=== PATIENT | male | born 1965 | race Caucasian/White ===

== ENCOUNTER 2021-09-20 11:51 | Emergency (ER) | payer OTHER ==
[2021-09-20 11:56] VITALS: TEMP 97
[2021-09-20] MEDS ORDERED: SODIUM CHLORIDE 0.9% 1,000 ML IV STA (12:49)
[2021-09-20] MEDS ORDERED: ONDANSETRON 4 MG/2 ML VIAL IVP STA (12:49)
[2021-09-20] MEDS ORDERED: KETOROLAC 15 MG/ML 1 ML VIAL IVP STA (12:49)
[2021-09-20] MEDS ORDERED: HYDROmorphone 0.5 MG/0.5 ML SYRINGE IVP STA ×3 (12:49→15:45)
[2021-09-20 13:12] LABS: Appearance,Urine Cloudy (Clear); Bacteria,Urine Few /hpf; Bilirubin,Urine Negative (Negative); Blood,Urine Large (Negative); Color,Urine Dark Brown; Glucose,Urine (UA) Negative (Negative); Ketones,Urine Trace (Negative); Leukocyte Esterase,Urine Moderate (Negative); Mucus,Urine Many /hpf; Nitrite,Urine Negative (Negative); PH, Urine 5.5 (5.0-8.0); Protein,Urine 1+ (Negative); RBC,Urine >182 /hpf (0-5); Specific Gravity,Urine 1.026 (1.001-1.035); Urobilinogen,Urine <2.0 mg/dL (<2.0); WBC,Urine 64 /hpf (0-5)
--- NOTE | 2021-09-20 13:18 | CT ---
EXAMINATION TYPE: CT abdomen pelvis wo con DATE OF EXAM: 09/20/2021 COMPARISON: None HISTORY: 56-year-old male abdominal pain, right flank pain CT DLP: 716.5 mGycm. Automated exposure control for dose reduction was used. TECHNIQUE: Contiguous axial scanning of the abdomen and pelvis without IV contrast. Coronal and sagit jessa reconstructions performed. FINDINGS: Heart normal size without pericardial effusion. Lung bases clear without pleural effusion. Mildly diminished attenuation of the liver parenchyma suggesting fatty infiltration. Noncontrast appearance of the gallbladder, adrenal glands, spleen, and pancreas show no gross abnorma l body. Low-density 2.3 cm cortical lesion lateral lower pole right kidney likely cyst. Approximately 3 nonobstructive right renal calculi are present, largest measuring 7 mm. There is mild right-sided hydronephrosis and a 5 mm stone in the proximal right ureter. A number of punctate 2 mm nonobstructive calculi in the left kidney. Mild central danny mesentery with some associated nonenlarged mesenteric lymph nodes measuring up to 6 mm. 3 - 6 month follow-up CT can reassess. No dilated small bowel, free fluid, or free air. Normal appendix. Mild stool in the right side of the colon. No pericolic inflammatory change. Circumferential bladder wall thickening could represent hypertrophy or cystitis. Correlate clinically . Pelvic phleboliths. No abnormal fluid collection in the pelvis or pelvic lymphadenopathy. Bones: Mild degenerative disc disease and mild facet arthropathy. IMPRESSION: 1. A 5 mm stone in the proximal right ureter with mild obstructive uropathy. 2. Additional nonobstructive renal calculi on both sides measuring up to 7 mm on the right and punct ate 2 mm on the left. 3. Mid abdominal danny mesentery with some associated nonenlarged lymph nodes measuring up to 6 mm. Findings may be seen with mesenteric panniculitis. Clinically correlate. 3 - 6 month follow-up CT to reassess as early lymphoma can have a similar appearance. 4. Hepatic steatosis. 5. Circumferential bladder wall thickening could represent chronic bladder wall hypertrophy or cysti tis. Clinically correlate.
--- NOTE | 2021-09-20 13:19 | XR ---
EXAMINATION TYPE: XR KUB DATE OF EXAM: 09/20/2021 Comparison: CT same day Clinical History: 56-year-old male abdominal pain Findings: Pelvic phleboliths. Vague 6 mm calculus right kidney. The 5 mm calculus seen on CT is seen on the upr ight view centered higher up. Nonobstructive bowel gas pattern. Impression: 5 mm calculus proximal right ureter as seen on CT. Additional 6 mm nonobstructive right renal calculu s.
[2021-09-20 14:05] VITALS: RESP 18
[2021-09-20 14:05] LABS: Basophils # (A) 0.2 k/uL (0-0.2); Basophils % (A) 2 %; Eosinophils # (A) 0.1 k/uL (0-0.7); Eosinophils % (A) 1 %; Lymphocytes # (A) 1.1 k/uL (1.0-4.8); Lymphocytes % (A) 10 %; MCH 32.9 pg (25.0-35.0); MCHC 33.3 g/dL (31.0-37.0); MCV 98.6 fL (80.0-100.0); Mean Platelet Volume 7.6; Monocytes # (A) 0.6 k/uL (0-1.0); Monocytes % (A) 6 %; Neutrophils # (A) 8.7 k/uL (1.3-7.7); Neutrophils % (A) 80 %; Platelet Count 242 k/uL (150-450); RBC 4.87 m/uL (4.30-5.90); RDW 12.5 % (11.5-15.5); WBC 10.9 k/uL (3.8-10.6)
[2021-09-20] MEDS ORDERED: ACET/COD 300 MG/30 MG STARTER PACK 6 TAB BTL PO STA (15:14)
--- NOTE | 2021-09-20 15:15 | ED ---
General Adult HPI - General Chief complaint: Recheck/Abnormal Lab/Rx Stated complaint: Flank pain/blood in urine Time Seen by Provider: 09/20/21 12:40 Source: patient, RN notes reviewed, old records reviewed Mode of arrival: ambulatory Limitations: no limitations - History of Present Illness Initial comments: This is a 56-year-old male with a past medical history significant for kidney stones. Patient states he hasn't been the hospital for 9 or 10 years for kidney stones. Patient states today he had some hematuria and some right flank pain which was indicative of his previous episodes of kidney stone. Patient denies any reproducible abdominal pain. Patient denies any recent fever chills or cough per patient denies chest pain difficult breathing shortness of breath. Patient is mildly nauseated. - Related Data Previous Rx's Medication Instructions Recorded Ketorolac [Toradol] 10 mg PO Q6HR #15 tab 09/20/21 Tamsulosin [Flomax] 0.4 mg PO DAILY #10 cap 09/20/21 Allergies Allergy/AdvReac Type Severity Reaction Status Date / Time No Known Allergies Allergy Verified 09/20/21 11:52 Review of Systems ROS Statement: Those systems with pertinent positive or pertinent negative responses have been documented in the HPI. ROS Other: All systems not noted in ROS Statement are negative. Past Medical History Past Medical History: Atrial Fibrillation History of Any Multi-Drug Resistant Organisms: None Reported Past Surgical History: Heart Catheterization Past Psychological History: No Psychological Hx Reported Smoking Status: Never smoker Past Alcohol Use History: Occasional Past Drug Use History: None Reported General Exam - General Exam Comments Initial Comments: GENERAL: Patient is well-developed and well-nourished. Patient is nontoxic and well- hydrated and is in moderate distress. ENT: Neck is soft and supple. No significant lymphadenopathy is noted. Oropharynx is clear. Moist mucous membranes. Neck has full range of motion without eliciting any pain. EYES: The sclera were anicteric and conjunctiva were pink and moist. Extraocular movements were intact and pupils were equal round and reactive to light. Ey elids were unremarkable. PULMONARY: Unlabored respirations. Good breath sounds bilaterally. No audible rales rhonchi or wheezing was noted. CARDIOVASCULAR: There is a regular rate and rhythm without any murmurs gallops or rubs. ABDOMEN: Soft and nontender with normal bowel sounds. SKIN: Skin is clear with no lesions or rashes and otherwise unremarkable. NEUROLOGIC: Patient is alert and oriented x3. Cranial nerves II through XII are grossly intact. Motor and sensory are also intact. Normal speech, volume and content. Symmetrical smile. MUSCULOSKELETAL: Normal extremities with adequate strength and full range of motion. Mild right CVA tenderness LYMPHATICS: No significant lymphadenopathy is noted PSYCHIATRIC: Normal psychiatric evaluation. Limitations: no limitations Course Vital Signs 09/20/21 09/20/21 11:53 13:55 Temperature 97 F L Pulse Rate 51 L 77 Respiratory 16 18 Rate Blood Pressure 158/92 147/92 O2 Sat by Pulse 99 97 Oximetry Medical Decision Making - Medical Decision Making CAT scan shows a 5 mm proximal right ureteral stone with mild hydronephrosis - Lab Data Result diagrams: 09/20/21 13:50 09/20/21 14:25 Lab Results 09/20/21 09/20/21 09/20/21 Range/Units 12:03 13:50 14:23 WBC 10.9 H (3.8-10.6) k/uL RBC 4.87 (4.30-5.90) m/uL Hgb 16.0 (13.0-17.5) gm/dL Hct 48.0 (39.0-53.0) % MCV 98.6 (80.0-100.0) fL MCH 32.9 (25.0-35.0) pg MCHC 33.3 (31.0-37.0) g/dL RDW 12.5 (11.5-15.5) % Plt Count 242 (150-450) k/uL MPV 7.6 Neutrophils % 80 % Lymphocytes % 10 % Monocytes % 6 % Eosinophils % 1 % Basophils % 2 % Neutrophils # 8.7 H (1.3-7.7) k/uL Lymphocytes # 1.1 (1.0-4.8) k/uL Monocytes # 0.6 (0-1.0) k/uL Eosinophils # 0.1 (0-0.7) k/uL Basophils # 0.2 (0-0.2) k/uL Sodium (137-145) mmol/L Potassium (3.5-5.1) mmol/L Chloride (98-107) mmol/L Carbon Dioxide (22-30) mmol/L Anion Gap mmol/L BUN (9-20) mg/dL Creatinine (0.66-1.25) mg/dL Est GFR (CKD-EPI)AfAm (>60 ml/min/1.73 sqM) Est GFR (CKD-EPI)NonAf (>60 ml/min/1.73 sqM) Glucose (74-99) mg/dL Calcium (8.4-10.2) mg/dL Total Bilirubin (0.2-1.3) mg/dL AST (17-59) U/L ALT (4-49) U/L Alkaline Phosphatase (38-126) U/L Total Protein (6.3-8.2) g/dL Albumin (3.5-5.0) g/dL Amylase (30-110) U/L Lipase (23-300) U/L Urine Color Dark Brown Dark Brown Urine Appearance Cloudy Turbid (Clear) Urine pH 5.5 5.5 (5.0-8.0) Ur Specific Pendroy 1.026 1.031 (1.001-1.035) Urine Protein 1+ H 2+ H (Negative) Urine Glucose (UA) Negative Negative (Negative) Urine Ketones Trace H Trace H (Negative) Urine Blood Large H Large H (Negative) Urine Nitrite Negative Negative (Negative) Urine Bilirubin Negative Negative (Negative) Urine Urobilinogen <2.0 <2.0 (<2.0) mg/dL Ur Leukocyte Esterase Moderate H Small H (Negative) Urine RBC >182 H >182 H (0-5) /hpf Urine WBC 64 H 3 (0-5) /hpf Urine Bacteria Few H Moderate H (None) /hpf Urine Mucus Many H Many H (None) /hpf 09/20/21 Range/Units 14:25 WBC (3.8-10.6) k/uL RBC (4.30-5.90) m/uL Hgb (13.0-17.5) gm/dL Hct (39.0-53.0) % MCV (80.0-100.0) fL MCH (25.0-35.0) pg MCHC (31.0-37.0) g/dL RDW (11.5-15.5) % Plt Count (150-450) k/uL MPV Neutrophils % % Lymphocytes % % Monocytes % % Eosinophils % % Basophils % % Neutrophils # (1.3-7.7) k/uL Lymphocytes # (1.0-4.8) k/uL Monocytes # (0-1.0) k/uL Eosinophils # (0-0.7) k/uL Basophils # (0-0.2) k/uL Sodium 134 L (137-145) mmol/L Potassium 4.9 (3.5-5.1) mmol/L Chloride 102 (98-107) mmol/L Carbon Dioxide 26 (22-30) mmol/L Anion Gap 6 mmol/L BUN 18 (9-20) mg/dL Creatinine 0.84 (0.66-1.25) mg/dL Est GFR (CKD-EPI)AfAm >90 (>60 ml/min/1.73 sqM) Est GFR (CKD-EPI)NonAf >90 (>60 ml/min/1.73 sqM) Glucose 107 H (74-99) mg/dL Calcium 8.7 (8.4-10.2) mg/dL Total Bilirubin 0.7 (0.2-1.3) mg/dL AST 45 (17-59) U/L ALT 33 (4-49) U/L Alkaline Phosphatase 70 (38-126) U/L Total Protein 6.8 (6.3-8.2) g/dL Albumin 4.3 (3.5-5.0) g/dL Amylase 83 (30-110) U/L Lipase 76 (23-300) U/L Urine Color Urine Appearance (Clear) Urine pH (5.0-8.0) Ur Specific Pendroy (1.001-1.035) Urine Protein (Negative) Urine Glucose (UA) (Negative) Urine Ketones (Negative) Urine Blood (Negative) Urine Nitrite (Negative) Urine Bilirubin (Negative) Urine Urobilinogen (<2.0) mg/dL Ur Leukocyte Esterase (Negative) Urine RBC (0-5) /hpf Urine WBC (0-5) /hpf Urine Bacteria (None) /hpf Urine Mucus (None) /hpf Disposition Clinical Impression: Kidney stone Disposition: HOME SELF-CARE Condition: Good Prescriptions: Tamsulosin [Flomax] 0.4 mg PO DAILY #10 cap Ketorolac [Toradol] 10 mg PO Q6HR #15 tab Is patient prescribed a controlled substance at d/c from ED?: No Referrals: Mike Montes MD [STAFF PHYSICIAN] - 1-2 days Time of Disposition: 15:13
[2021-09-20 15:21] LABS: ALT 33 U/L (4-49); African American GFR (CKD) >90 (>60 ml/min/1.73 sqM); Albumin 4.3 g/dL (3.5-5.0); Amylase 83 U/L (30-110); Anion Gap 6 mmol/L; Blood Urea Nitrogen 18 mg/dL (9-20); Calcium 8.7 mg/dL (8.4-10.2); Carbon Dioxide 26 mmol/L (22-30); Chloride 102 mmol/L (98-107); Glucose 107 mg/dL (74-99); Lipase 76 U/L (23-300); Non-African American GFR(CKD) >90 (>60 ml/min/1.73 sqM); Sodium 134 mmol/L (137-145); Total Bilirubin 0.7 mg/dL (0.2-1.3); Total Protein 6.8 g/dL (6.3-8.2)
[2021-09-20 15:33] LABS: Appearance,Urine Turbid (Clear); Bacteria,Urine Moderate /hpf; Bilirubin,Urine Negative (Negative); Blood,Urine Large (Negative); Color,Urine Dark Brown; Glucose,Urine (UA) Negative (Negative); Ketones,Urine Trace (Negative); Leukocyte Esterase,Urine Small (Negative); Mucus,Urine Many /hpf; Nitrite,Urine Negative (Negative); PH, Urine 5.5 (5.0-8.0); Protein,Urine 2+ (Negative); RBC,Urine >182 /hpf (0-5); Specific Gravity,Urine 1.031 (1.001-1.035); Urobilinogen,Urine <2.0 mg/dL (<2.0); WBC,Urine 3 /hpf (0-5)
[2021-09-20 15:33] LABS: Potassium 4.9 mmol/L (3.5-5.1)
[2021-09-20 15:34] LABS: AST 45 U/L (17-59); Alkaline Phosphatase 70 U/L (38-126)
[2021-09-20 16:01] VITALS: BP 147/89; PULSE 64
== END 2021-09-20 16:08 | disposition home or self-care (01) ==
LOC: EC 11:51
DX: N20.0 Calculus of kidney (principal)
CPT/HCPCS: 36415; 80053; 82150; 83690; 85025; 81001; 87086; 74018; 74176; 99284; 96374; 96375; 96376; 96361; J2405; J1885; J1170

== ENCOUNTER 2021-10-21 07:25 | Day surgery (SDC) | payer OTHER ==
[2021-10-16 15:01] VITALS: BMI 29.2
--- NOTE | 2021-10-18 13:54 | P.HPIHPCON ---
History of Present Illness H&P Date: 10/18/21 Chief Complaint: Right-sided ureteral stone This is a 56-year-old male with a history of a 5 mm right-sided proximal stone, and multiple nonobstructive renal stones. He is symptomatically from his stone. Discussed option of ureteroscopy with holmium laser versus ESWL with him. The risk and benefit of each approach were discussed in detail. He agreed to proceed with right-sided ureteroscopy with holmium laser. Discussed the risk which includes but not limited to bleeding, infection, injury to the ureter. Discussed also risk of anesthesia. He understood all the risk and agreed to proceed Consent for Procedure: I have explained the operation/procedure to the patient, including the risks, benefits, side effects, alternative therapies (including not receiving the proposed treatment or service), the likelihood of the patient achieving his/her goals, and potential recuperation problems for the procedure/sedation/analgesia, as well as any blood products, if indicated. I also explained to the patient the risks, benefits and side effects of the alternatives, as well as the risks related to not receiving the proposed procedure, care, treatment, or services. Past Medical History Past Medical History: Atrial Fibrillation, Hyperlipidemia, Hypertension Additional Past Medical History / Comment(s): KIDNEY STONES History of Any Multi-Drug Resistant Organisms: None Reported Past Surgical History: Heart Catheterization, Orthopedic Surgery Additional Past Surgical History / Comment(s): RT TRIGGER FINGER SX Past Anesthesia/Blood Transfusion Reactions: No Reported Reaction Smoking Status: Never smoker - Past Family History Mother Family Medical History: No Reported History Medications and Allergies Home Medications Medication Instructions Recorded Confirmed Type Ketorolac [Toradol] 10 mg PO Q6HR #15 tab 09/20/21 10/16/21 Rx Tamsulosin [Flomax] 0.4 mg PO DAILY #10 cap 09/20/21 10/16/21 Rx Apixaban [Eliquis] 5 mg PO BID 10/16/21 10/16/21 History Aspirin [Adult Low Dose Aspirin EC] 81 mg PO DAILY 10/16/21 10/16/21 History Atorvastatin [Lipitor] 40 mg PO DAILY 10/16/21 10/16/21 History Metoprolol Succinate (ER) [Toprol 50 mg PO DAILY 10/16/21 10/16/21 History Xl] Allergies Allergy/AdvReac Type Severity Reaction Status Date / Time No Known Allergies Allergy Verified 10/16/21 14:53 Surgical - Exam - General no distress, moderate pain - Eyes normal ocular movement, no pale - ENT normal nares, normal mucosa - Respiratory normal expansion, normal respiratory effort - Abdomen Abdomen: soft, non tender - Psychiatric oriented to time, oriented to person, oriented to place Assessment and Plan Assessment: Or for right-sided ureteroscopy, with holmium laser lithotripsy, stone basketing and stent insertion
[~2021-10-21 07:25] MED LIST: DEXAMETHASONE SOD PHOSPHATE 4 MG/ML 1 ML VIAL IV ONE; LACTATED RINGERS 1,000 ML IV SCH; LIDOCAINE 1% (10MG/ML) FOR IV START INTRADERMA PRN; MIDAZOLAM 2 MG/2 ML VIAL IV PRN; ONDANSETRON 4 MG/2 ML VIAL IVP ONE
--- NOTE | 2021-10-21 07:46 | XR ---
EXAMINATION TYPE: XR KUB DATE OF EXAM: 10/21/2021 7:37 AM CLINICAL HISTORY: Presurgical, right-sided stones. TECHNIQUE: Single KUB image of the abdomen is obtained. COMPARISON: KUB 7022, CT abdomen pelvis 09/20/2021. FINDINGS: Scattered gas is seen in non-distended small bowel loops. Gas and fecal material is seen in non-distended colon. A 5 mm calculus overlying the right kidney redemonstrated. Previously demonstra diony calculus in the right ureter is not definitively visualized. Pelvis phleboliths redemonstrated. O sseous structures are intact. IMPRESSION: 5 mm right renal calculus demonstrated. Previously demonstrated calculus in the right ureter is not d efinitively visualized.
[2021-10-21] MEDS ORDERED: MIDAZOLAM 2 MG/2 ML VIAL ONE (09:47)
[2021-10-21] MEDS ORDERED: LIDOCAINE 2% INJ 20 MG/ML (2 ML VIAL) ONE (09:47)
[2021-10-21] MEDS ORDERED: fentaNYL (PF) 50 MCG/ML 2 ML AMP ONE (09:47)
[2021-10-21] MEDS ORDERED: PROPOFOL 10 MG/ML 20 ML VIAL IV ONE (09:47)
--- NOTE | 2021-10-21 10:57 | P.OP ---
Date of Procedure: 10/21/21 Preoperative Diagnosis: Right sided ureteral, renal stones Postoperative Diagnosis: Right-sided renal stones Procedure(s) Performed: Cystoscopy, right ureteroscopy, holmium laser lithotripsy, stone basketing Implants: None Anesthesia: KRISTYA Surgeon: Mike Montes Estimated Blood Loss (ml): 5 Pathology: other (Right renal stone) Condition: stable Disposition: PACU Indications for Procedure: This is a 56-year-old male with a history of a 5 mm right-sided proximal stone, and multiple nonobstructive renal stones. He is symptomatically from his stone. Discussed option of ureteroscopy with holmium laser versus ESWL with him. The risk and benefit of each approach were discussed in detail. He agreed to proceed with right-sided ureteroscopy with holmium laser. Discussed the risk which includes but not limited to bleeding, infection, injury to the ureter. Discussed also risk of anesthesia. He understood all the risk and agreed to proceed Operative Findings: Stone within the mid and lower pole of the kidney no ureteral stone visualized Description of Procedure: Patient brought to the operating room, general anesthesia was induced. He was prepped and draped in sterile fashion and placed in dorsal lithotomy position. Of note patient had evidence of meatal stenosis, with a coronal hypospadias. A cystoscope fitted with a 17-Romansh sheath was inserted per urethra, and I was able to advance the scope into the bladder, cystoscopy was performed whixh showed no abnormality within the bladder, patient had partial prostatic obstruction.. At this time the cystoscope was withdrawn and a semirigid ureteroscope was inserted and advanced up the right ureteral orifice, the scope was advanced through the ureteral orifice, and the scope was advanced into the mid ureter which showed no evidence of stone, pullback ureteroscopy was performed which showed no evidence of stones or injury to the ureter, as the ureteroscope was withdrawn a sensor wire was advanced through. Next under fluoroscopy 1113 Romansh access sheath was passed over the wire and into the proximal ureter. Next a flexible ureteroscope was inserted through the access sheath, ureteroscopy was performed which showed no evidence of stone along the proximal ureter, renoscopy was performed which showed a stone along the lower and midpole of the kidney, using the holmium laser the stone was dusted, sizable fragments were removed and sent for analysis. Repeat renoscopy showed no sizable fragments or injury to the kidney. Pullback ureteroscopy was performed whih showed no injury to the ureter or any evidence of ureteral stones or fragments, there was no ureteral edema, thus a stent was not placed. The bladder was emptied at the end of the case. Patient tolerated the procedure well was taken to recovery in stable condition
[2021-10-21] MEDS: HYDROmorphone 0.5 MG/0.5 ML SYRINGE IVP PRN ×3 (11:06→12:01)
--- NOTE | 2021-10-21 11:24 | FL ---
Intraoperative/procedural fluoroscopic services were provided for right renal stone removal/lithotrip sy. Total fluoroscopy time is 1 second with a total of 1 submitted image to PACS. Please see the oper ative note for further details.
[2021-10-21 11:27] VITALS: TEMP 97.6
[2021-10-21] MEDS ORDERED: LACTATED RINGERS 1,000 ML IV ONE (12:14)
[2021-10-21] MEDS ORDERED: HYDROcodone/APAP 5-325MG 1 EACH TAB ONE (12:39)
[2021-10-21] MEDS ORDERED: HYDROcodone/APAP 5-325MG 1 EACH TAB PO ONE (12:41)
[2021-10-21 13:38] VITALS: BP 127/86; PULSE 77; RESP 16
== END 2021-10-21 13:35 | disposition home or self-care (01) ==
LOC: OR 07:25
PROVIDERS: ATTEND Urology
DX: N20.0 Calculus of kidney (principal); N40.1 Benign prostatic hyperplasia with lower urinary tract symptoms; N13.8 Other obstructive and reflux uropathy; I10 Essential (primary) hypertension; E78.5 Hyperlipidemia, unspecified; I48.91 Unspecified atrial fibrillation; Z79.01 Long term (current) use of anticoagulants; Z79.82 Long term (current) use of aspirin; Z79.899 Other long term (current) drug therapy
CPT/HCPCS: 82365; 74018; 52353; C1769; J2250; J1100; J0690; J2405; J3010; J2704; J1170; J2001

== ENCOUNTER → 2021-11-26 | Outpatient (CLI) | payer OTHER ==
--- NOTE | 2021-11-26 09:50 | XR ---
EXAMINATION TYPE: XR KUB DATE OF EXAM: 11/26/2021 9:27 AM CLINICAL HISTORY: Right-sided kidney stone TECHNIQUE: Two supine KUB images of the abdomen are obtained. COMPARISON: Abdominal x-ray October 21, 2021. FINDINGS: Prior 5 mm calculus mid right kidney near right 12th rib now not clearly seen. Scattered pe lvic phleboliths redemonstrated. No new nephrolithiasis. Overall nonobstructive bowel gas pattern. Visualized osseous structures are intact. IMPRESSION: As above.
== END | disposition home or self-care (01) ==
LOC: RADXRMAIN 09:04
PROVIDERS: ATTEND Urology
DX: N20.0 Calculus of kidney (principal)
CPT/HCPCS: 74018

== ENCOUNTER → 2022-03-17 | Outpatient (CLI) | payer OTHER ==
--- NOTE | 2022-03-17 14:50 | CT ---
EXAMINATION TYPE: CT abdomen pelvis wo con DATE OF EXAM: 03/17/2022 HISTORY: LLQ PAIN CT DLP: 734.6 mGycm. Automated Exposure Control for Dose Reduction was Utilized. TECHNIQUE: CT scan of the abdomen and pelvis is performed with oral and without IV contrast. COMPARISON: Prior CT September 20, 2021 FINDINGS: Within the limitations of a non-contrast study, the following observations are made. LUNG BASES: No significant abnormality is appreciated. LIVER/GB: Liver remains diffusely slightly hypodense relative to spleen consistent with mild diffuse fatty infiltration. Dependent density consistent with gallbladder sludge is present. PANCREAS: No significant abnormality is seen. SPLEEN: No significant abnormality is seen. ADRENALS: No significant abnormality is seen. KIDNEYS: There is exophytic 2.4 cm thin-walled cyst posteriorly and laterally from the lower pole rig ht kidney axial image 40 redemonstrated. No nephrolithiasis or hydronephrosis seen bilaterally on cur rent study. BOWEL: Oral contrast reaches level of the proximal transverse colon. No suspicious small or large bow el dilatation. Normal contrast-filled appendix. No significant diverticulosis or CT evidence for acut e diverticulitis. GENITAL ORGANS: Prostate gland not enlarged. Adjacent pelvic phleboliths redemonstrated. LYMPH NODES: No greater than 1cm abdominal or pelvic lymph nodes are appreciated. Slightly prominent but subcentimeter lymph nodes throughout the left abdominal mesentery. No greater than 1.0 cm lymph n ode seen. OSSEOUS STRUCTURES: No significant abnormality is seen. OTHER: Stable small fat-containing left inguinal hernia. IMPRESSION: Taisha mesentery appearance has a similar appearance to prior CT. No new or enlarging elidia opathy noted. Interval complete clearance of right sided renal calculi. No new or acute findings evid ent to account for patient's left lower quadrant pain.
== END | disposition home or self-care (01) ==
LOC: RADCTMAIN 12:35
PROVIDERS: ATTEND Family Medicine
DX: N20.0 Calculus of kidney (principal); R59.9 Enlarged lymph nodes, unspecified
CPT/HCPCS: 74176